=== PATIENT | female | born 1975 | race Caucasian/White ===

== ENCOUNTER 2021-03-13 15:05 | Observation (INO) | payer OTHER, SELFPAY ==
--- NOTE | ~2021-03-13 | CT_ITS ---
EXAMINATION: CT abdomen pelvis wo con DATE: 03/13/2021 17:00 INDICATION: Right flank pain TECHNIQUE: Computed tomography (CT) of the abdomen and pelvis was performed without intravenous contr ast. Automated exposure control and iterative reconstruction technique were employed. Exam dose: 606 .96 mGy-cm total exam DLP. COMPARISON: Numerous right upper quadrant abdominal ultrasound 09/01/2018 radionuclide hepatobiliary scan 08/05/2018 CT abdomen pelvis FINDINGS: Minimal discoid atelectasis or scarring at the lung bases. No infiltrate or consolidation a t the included lower lung zones. Normal heart size. No pericardial or pleural effusion. Status post cholecystectomy. The liver, spleen, pancreas, and adrenal glands are unremarkable. Approximately 3 mm upper pole nonobstructing left renal calculus. Approximately 4 mm distal left ureteral calculus with proximal mild left hydroureteronephrosis. Normal caliber of the abdominal aorta. No intraperitoneal or retroperitoneal or pelvic mass lesion or adenopathy or ascites. No CT evidence of appendicitis. No bowel obstruction, bowel wall thickening, pneumatosis or intraperi toneal free air. The uterus and adnexal areas are unremarkable. The urinary bladder is nearly evacuated. Very small fat-containing umbilical hernia. Included skeletal structures are unremarkable other than hemangioma of T11 vertebral body. IMPRESSION: 4 mm distal left ureteral calculus with proximal mild left hydroureteronephrosis 3 mm upper pole nonobstructing left renal calculus Status post cholecystectomy Reviewed, dictated and finalized at [facility]. Reviewed, dictated and finalized at location [facility]. IMPRESSION: 4 mm distal left ureteral calculus with proximal mild left hydrour eteronephrosis 3 mm upper pole nonobstructing left renal calculus Status post cholecystectomy
--- NOTE | ~2021-03-13 | XR_ITS ---
EXAMINATION: XR abdomen/kub 1V EXAM DATE: 03/13/2021 17:53 INDICATION: Kidney stones, pain to left side, nausea and vomiting. TECHNIQUE: Frontal projection of the upper abdomen, frontal projection lower abdomen/pelvis for inter pretation. Correlation is made to CT abdomen pelvis same date. FINDINGS: Identification of 2 contiguous 3 mm left UVJ identified, indicated. Please correlate this with the CT same date. No other suspicious calcific densities. Cholecystectomy clips. Nonobstructive bowel gas pattern. IMPRESSION: Left UVJ stones identified, indicated. Reviewed, dictated and finalized at location [facility].
--- NOTE | ~2021-03-13 | XR_ITS ---
XR abdomen/kub 1V DATE: 03/14/2021 09:36 INDICATION: Left ureterovesical junction stone TECHNIQUE: AP projection portable supine AP technique, 2 views COMPARISON: 03/13/[address] abdomen pelvis FINDINGS: The previously reported to approximately 3 mm stones of the distal left ureter are no longe r present. Status post cholecystectomy. The bowel gas pattern is unremarkable, without evidence of obstruction. IMPRESSION: Resolution of 2 distal left ureteral approximately 3 mm calcified stones since 03/14/2021 Reviewed, dictated and finalized at [facility]. Reviewed, dictated and finalized at location [facility]. IMPRESSION: Resolution of 2 distal left ureteral approximately 3 mm calcified s tones since 03/14/2021
[2021-03-13 15:06] VITALS: BP 148/82; PULSE 73; RESP 18; TEMP 36.6; O2SAT 100
[2021-03-13 15:42] LABS: Basophils Absolute Auto 0.1 K/mm3 (0.0-0.1); Basophils Percent Auto 0.6 % (0.2-1.2); Eosinophils Absolute Auto 0.1 K/mm3 (0-0.3); Eosinophils Percent Auto 0.7 % (0-4.4); Hemoglobin 13.4 g/dL (12.0-15.0); Immature Granulocyte Absolute 0.05 K/mm3 (0.00-0.031); Immature Granulocyte Percent A 0.3 % (0-0.5); Lymphocytes Absolute Auto 4.09 K/mm3 (0.9-3.2); Lymphocytes Percent Auto 28.4 % (18.3-44.2); Mean Corpuscular HGB Conc 31.9 g/dl (32-36); Mean Corpuscular Volume 84.5 fl (80-100); Mean Platelet Volume 11.7 fl (7.4-10.4); Monocytes Absolute Auto 0.7 K/mm3 (0.1-0.6); Monocytes Percent Auto 4.6 % (2.6-8.5); Neutrophils Absolute Auto 9.4 K/mm3 (1.3-6.7); Neutrophils Percent Auto 65.4 % (45.5-73.1); Platelet Count Result 380 k/mm3 (150-375); Red Blood Count 4.97 M/mm3 (4.2-5.4); Red Cell Distribution Width 12.8 % (11.5-14.5); White Blood Count 14.4 K/mm3 (4.5-10.0)
[2021-03-13 15:44] LABS: Add Urine Microscopic? YES; Appearance Urine Cloudy (Clear); Bacteria Urine Trace /hpf; Bilirubin Urine Negative (Negative); Blood Urine 3+ (Negative); Color Urine Yellow (Yellow); Glucose Urine UA Negative (Negative); Ketones Urine 1+ mg/dL (Negative); Leukocyte Esterase Ur 1+ LEU/UL (Negative); Mucus Urine Moderate /lpf; Nitrate Urine Negative (Negative); Protein Urine 1+ mg/dL (Negative); RBC Urine >75 /hpf (0-2); Specific Grav Ur 1.021 (1.001-1.035); Squamous Epithelial Cell Urine Many /hpf (Few); Urobilinogen Urine Negative mg/dL (<2.0); WBC Urine 21-30 /hpf
[2021-03-13 16:32] LABS: Alanine Aminotransferase 19 U/L (4-35); Albumin Level 5.1 g/dL (3.5-5.1); Alkaline Phosphatase 104 U/L (38-126); Anion Gap 17 mmol/L (8-16); Aspartate Amino Transferase 33 U/L (14-36); Bilirubin,Total 0.5 mg/dL (0.2-1.3); Blood Urea Nitrogen 10 mg/dL (7-17); Calcium 10.4 mg/dL (8.4-10.2); Carbon Dioxide 20 mmol/L (22-30); Chloride 103 mmol/L (98-107); Estimated CRCL calculation 139 ml/min; Estimated Glomerular Filt Rate > 60; Glucose 126 mg/dL (65-110); Lipase 53 U/L (23-300); Potassium 3.1 mmol/L (3.4-5.0); Sodium 140 mmol/L (137-145)
[2021-03-13] MEDS: HYDROmorphone HCL INJ (*CRX) 1 MG/ML SYR IV PUSH (16:35)
[2021-03-13] MEDS: ONDANSETRON INJ 4 MG/2 ML VIAL IV PUSH ×2 (16:35→18:33)
[2021-03-13] MEDS: SODIUM CHLORIDE 0.9% IV 1,000 ML 999 ML IV CONT (16:36)
--- NOTE | 2021-03-13 16:54 | PC.NURSE ---
Pt to CT scan via stretcher at this time.
[2021-03-13 17:43] VITALS: BP 127/68; PULSE 87; RESP 15; O2SAT 97
--- NOTE | 2021-03-13 18:14 | ED.GENADULT ---
HPI - General Adult General Chief complaint: Abdominal Pain Stated complaint: abd pain Time Seen by Provider: 03/13/21 16:07 Source: patient and RN notes reviewed Mode of arrival: ambulatory Limitations: no limitations History of Present Illness HPI narrative: Patient is a 45-year-old female who presents to emergency department for evaluation of acute onset of left flank pain today denies similar occurrence in the past presents uncomfortable has not take anything for her symptoms notes nausea and vomiting pain is localized to the left flank sharp and stabbing in nature Related Data Allergies Allergy/AdvReac Type Severity Reaction Status Date / Time methimazole Allergy Unknown Vomiting Verified 03/13/21 15:10 hydrocodone AdvReac Unknown VOMITING Verified 05/07/19 16:49 CODIENE AdvReac Unknown NAUSEA AND Uncoded 10/01/18 08:44 VOMITING Review of Systems Review of Systems: All systems reviewed & are unremarkable except as noted in HPI and below PMFSH Family History Family History (Updated 09/18/18 @ 08:58 by DOCTOR UNKNOWN) Grandparent Diabetes mellitus Carcinoma of colon Mother Acute myocardial infarction Sibling Family history of gynecological problem Father Patient's father is in good health Social History Social History Smoking status: Never smoker Alcohol intake: current Exam Narrative: Exam Narrative: GENERAL: Ill-appearing, well-nourished, uncomfortable and in no acute distress. HEAD: Normocephalic, atraumatic. EYES: PERRLA and EOMI. ENT: Nares clear, no rhinorrhea or epistaxis. Mucous membranes moist. NECK: Supple. No adenopathy or masses. CHEST: Clear to auscultation. No respiratory distress. No wheezes rales or rhonchi HEART: Regular rate and rhythm. No murmur heard. Normal peripheral pulses. ABDOMEN: Soft, nontender, nondistended EXTREMITIES: Normal range of motion. No edema. SKIN: Warm, dry, no rash. NEURO: No focal deficits. Alert and oriented x3. Cranial nerves II through XII grossly intact PSYCH: Normal mood and affect. Course Course Emergency Course: Patient found to have urolithiasis will be placed in hospital to the urology team with planned reevaluation in the morning fluids pain medicine and antibiotics initiated in the emergency department patient agreeing with this plan Consultations Consultation #1: Discussed case with Dr. Torres who has agreed to accept the patient with reevaluation in the morning n.p.o. status at midnight Date: 03/13/21 Time: 18:16 Vital Signs Vital signs: Vital Signs Temperature 97.8 F 03/13/21 15:06 Pulse Rate 73 03/13/21 15:06 Respiratory Rate 18 03/13/21 15:06 Blood Pressure 148/82 H 03/13/21 15:06 Pulse Oximetry 100 03/13/21 15:06 Temperature 97.8 F 03/13/21 15:06 Pulse Rate 87 03/13/21 17:43 Respiratory Rate 15 03/13/21 17:43 Blood Pressure 127/68 03/13/21 17:43 Pulse Oximetry 97 03/13/21 17:43 Medical Decision Making MDM Narrative Medical decision making narrative: Patient with urolithiasis will be placed in hospital for pain management reevaluation by urology patient is aware of this and agreeing with this and has had improved condition since arrival hemodynamically stable ABCs and vital signs intact and stable Vital Signs Vital Signs: Vital Signs Temperature 97.8 F 03/13/21 15:06 Pulse Rate 73 03/13/21 15:06 Respiratory Rate 18 03/13/21 15:06 Blood Pressure 148/82 H 03/13/21 15:06 Pulse Oximetry 100 03/13/21 15:06 Temperature 97.8 F 03/13/21 15:06 Pulse Rate 87 03/13/21 17:43 Respiratory Rate 15 03/13/21 17:43 Blood Pressure 127/68 03/13/21 17:43 Pulse Oximetry 97 03/13/21 17:43 Lab Data Result diagrams: 03/13/21 15:25 03/13/21 15:25 Labs: Lab Results 03/13/21 03/13/21 03/13/21 Range/Units 15:25 15:25 15:25 WBC 14.4 H (4.5-10.0) K/mm3 RBC 4.97 (4.2-
[2021-03-13] MEDS: MORPHINE SULFATE (*CRX) 4 MG/ML INJ IV PUSH ×3 (18:32→21:39)
[2021-03-13 18:35] VITALS: BP 117/64; PULSE 74; RESP 22; O2SAT 100
--- NOTE | 2021-03-13 19:17 | PC.NURSE ---
Bedside report given to Karma KAYE at this time.
[2021-03-13 21:00] VITALS: BP 145/72; PULSE 70; RESP 20; TEMP 36.4; O2SAT 99; BMI 40.1
[2021-03-13] MEDS: LACTATED RINGERS 1,000 ML 125 ML IV CONT (21:30)
[2021-03-13] MEDS: FAMOTIDINE 20 MG/2 ML VIAL IV PUSH (21:33)
--- NOTE | 2021-03-13 22:05 | ADMGEN ---
This patient, Luciana Thompson, was admitted to [facility] Surg Room 314-02 at 2100. Patient/family oriented to hospital policies and general routines including ID bracelet, bed and alarms, visiting hours, pain management, procedures, bathroom and other care routines, personal items, smoking policy, room service/diet, and visiting hours. Information on how to activate the Rapid Response Team has been discussed. Patient/Family are encouraged to report perceived risks to care and to ask questions if they do not understand what they are told or what they should do.
[2021-03-14] MEDS: MORPHINE SULFATE (*CRX) 4 MG/ML INJ IV PUSH ×2 (02:30→06:02)
[2021-03-14 06:00] VITALS: BP 108/64; PULSE 56; RESP 14; TEMP 36.2; O2SAT 100
[2021-03-14] MEDS: LACTATED RINGERS 1,000 ML 125 ML IV CONT ×2 (06:00→06:06)
[2021-03-14 06:32] VITALS: PULSE 70; RESP 20; O2SAT 99
[2021-03-14 06:33] LABS: Basophils Percent Auto 0.3 % (0.2-1.2); Eosinophils Percent Auto 0.1 % (0-4.4); Hematocrit 35.7 % (37.0-47.0); Hemoglobin 11.4 g/dL (12.0-15.0); Immature Granulocyte Absolute 0.06 K/mm3 (0.00-0.031); Immature Granulocyte Percent A 0.5 % (0-0.5); Lymphocytes Absolute Auto 1.82 K/mm3 (0.9-3.2); Lymphocytes Percent Auto 15.3 % (18.3-44.2); Mean Corpuscular HGB Conc 31.9 g/dl (32-36); Mean Corpuscular Hemoglobin 27.2 pg (26-34); Mean Corpuscular Volume 85.2 fl (80-100); Monocytes Absolute Auto 0.7 K/mm3 (0.1-0.6); Monocytes Percent Auto 5.7 % (2.6-8.5); Neutrophils Absolute Auto 9.3 K/mm3 (1.3-6.7); Neutrophils Percent Auto 78.1 % (45.5-73.1); Platelet Count Result 301 k/mm3 (150-375); Red Blood Count 4.19 M/mm3 (4.2-5.4); White Blood Count 11.9 K/mm3 (4.5-10.0)
[2021-03-14 06:50] LABS: Anion Gap 9 mmol/L (8-16); Blood Urea Nitrogen 9 mg/dL (7-17); Carbon Dioxide 27 mmol/L (22-30); Chloride 102 mmol/L (98-107); Estimated CRCL calculation 144 ml/min; Estimated Glomerular Filt Rate > 60; Glucose 106 mg/dL (65-110); Potassium 3.5 mmol/L (3.4-5.0); Sodium 138 mmol/L (137-145)
--- NOTE | 2021-03-14 09:26 | WPDURCON ---
Assessment and Plan Assessment and plan (1) Urolithiasis: Code(s): N20.9 - Urinary calculus, unspecified Status: Acute Assessment and Plan: STAT KUB shows resolution of previously seen left UVJ stone. Patient's ok to be discharged home. Will send stone for analysis. The 3mm non obstructive left renal stone will need to be monitored yearly with HEATHER since it isn't visible on KUB. Urology Consult Note HPI Date Seen: 03/14/21 Requesting Physician: Daniel Torres MD Primary Care Provider: Elvin, Vee MARR Consult Narrative Narrative: Luciana Thompson is a 45 year old female who presented to the ER yesterday after an acute onset of sharp, stabbing left flank pain that began around 1330 yesterday at work. She denies dysuria, hematuria or vomiting but does have some nausea. Her WBC is 11.9, creatinine of 0.50 and UA is not suspicous of a UTI, urine culture is pending. Her CT scan shows a 4mm distal left UVJ stone with proximal mild left hydronpehrosis and a 3mm non obstructive left renal stone. KUB shows left UVJ stone. The patient states that around 2am she urinated and passed her stone. Her pain is improved and now feels like cramping only. She denies a previous history of kidney stones. Review of Systems Cardiovascular: Cardiovascular: Denies chest pain Respiratory: Respiratory: Reports no additional respiratory complaints Gastrointestinal: Gastrointestinal: Reports abdominal pain, Denies nausea and Denies vomiting Genitourinary: Genitourinary: Denies hematuria, Denies dysuria, Denies flank pain and Denies urinary urgency [facility] Family History Family History Grandparent Diabetes mellitus Carcinoma of colon Mother Acute myocardial infarction Sibling Family history of gynecological problem Father Patient's father is in good health Social History Social History Smoking status: Never smoker Alcohol intake: never Substance use: never Spiritual care concerns: No Meds Home Medications and Allergies Home Medications Medication Instructions Recorded Confirmed Type acetaminophen 1,000 mg PO Q6H PRN 03/13/21 03/13/21 History ibuprofen 800 mg PO Q6H PRN 03/13/21 03/13/21 History nystatin 1 applic TOPICAL DAILY 03/13/21 03/13/21 History sertraline 25 mg PO HS 03/13/21 03/13/21 History Allergies Allergy/AdvReac Type Severity Reaction Status Date / Time methimazole Allergy Unknown Vomiting Verified 03/13/21 21:47 hydrocodone AdvReac Unknown VOMITING Verified 03/13/21 21:47 CODIENE AdvReac Unknown NAUSEA AND Uncoded 10/01/18 08:44 VOMITING Vital Signs Vital Signs - 24 hr 03/13/21 15:06 03/13/21 17:43 03/13/21 18:35 Temperature 97.8 F Pulse Rate 73 87 74 Respiratory Rate 18 15 22 H Blood Pressure 148/82 H 127/68 117/64 Pulse Oximetry 100 97 100 03/13/21 21:00 03/14/21 06:00 03/14/21 06:32 Temperature 97.5 F L 97.1 F L Pulse Rate 70 56 L 70 Respiratory Rate 20 14 20 Blood Pressure 145/72 H 108/64 Pulse Oximetry 99 100 99 Exam Resp: Effort & Inspection: normal respiratory effort Cardio: Rate: regular rate GI: GI Palp: Yes Soft to palpation and Yes Tenderness to palpation present (GI) (LLQ) : General: Yes no CVA tenderness Extrem: General: no edema Results Labs CBC & Chem 7: 03/14/21 05:52 03/14/21 05:52 Labs: Short CBC 03/13/21 03/14/21 Range/Units 15:25 05:52 WBC 14.4 H 11.9 H (4.5-10.0) K/mm3 Hgb 13.4 11.4 L (12.0-15.0) g/dL Hct 42.0 35.7 L (37.0-47.0) % Plt Count 380 H 301 (150-375) k/mm3 BMP 03/13/21 03/14/21 15:25 05:52 Sodium 140 138 Potassium 3.1 L 3.5 Chloride 103 102 Carbon Dioxide 20 L 27 BUN 10 9 Creatinine 0.50 L 0.50 L Glucose 126 H 106 Calcium 10.4 H 9.0 Liver Function 03/13/21 Range/Units 15:25 Total B
[2021-03-14 09:44] VITALS: RESP 20; O2SAT 95
[2021-03-14] MEDS: FAMOTIDINE 20 MG/2 ML VIAL IV PUSH (09:44)
[2021-03-14 11:19] VITALS: O2SAT 95
[2021-03-14 14:00] VITALS: BP 102/56; PULSE 63; RESP 16; TEMP 36.7; O2SAT 99
--- NOTE | 2021-04-21 16:12 | P.DS_ITS ---
DS: Admitting Diagnosis Admitting Diagnosis Ureteral Stone DS: Discharge Diagnosis Discharge Diagnosis (1) Urolithiasis: Code(s): N20.9 - Urinary calculus, unspecified Status: Acute DS: Summary Hospital Course Hospital Course: See note below. Time Spent with Patient Time attestation: Luciana Thompson is a 45 year old female who presented to the ER on 03/13/2021 after an acute onset of sharp, stabbing left flank pain that began the day before at work. She denies dysuria, hematuria or vomiting but does have some nausea. Her WBC was 11.9, creatinine of 0.50 and urine culture was growing group B strep. Her CT scan showed a 4mm distal left UVJ stone with proximal mild left hydronpehrosis and a 3mm non obstructive left renal stone. KUB shows left UVJ stone. The patient states that around 2am 03/14/2021 she urinated and passed her stone. Her pain is improved and now feels like cramping only. She denies a previous history of kidney stones. A KUB confirmed passage of her stone and she was discharged home without need for intervention. She was to resume a regular diet, activity as tolerated and to resume all previous home mediations. Exam Resp: Effort & Inspection: normal respiratory effort Cardio: Rate: regular rate GI: GI Palp: Yes Soft to palpation and No Tenderness to palpation present (GI) : General: Yes no CVA tenderness Extrem: General: no edema DS: Data Data Completed and Pending Completed studies during hospitalization: Pending at discharge 03/14/21 09:42 Surgical [PTH] Routine Discharge Plan Discharge Attending physician on discharge: Daniel Torres Consulting providers: Ken Barnes ; Hiral Easley Discharging Clinician: Hiral Easley Anticipated Discharge Date/Time: 03/14/21 13:30 Patient Disposition: Home, Self-Care Activity: may shower Diet: as tolerated Discharge Instructions: You should follow up with our office next year to monitor your left kidney stone. We will plan to do a renal ultrasound on it yearly, until it either passes on it's own spontaneously or until it is large enough and visible on X- Ray to do a lithotripsy procedure on it. No further follow up needed at this time since you have passed your stone. You will experience some discomfort after passing your stone for up to a week, possibly see blood in your urine or urinate more often than usual. This is a common experience when passing a stone. Patient Instructions: Antibiotic Form, Pain Management (DC) Stand Alone Forms: General Discharge Information Follow-up/Referrals: Daniel Torres MD [Physician] - Discharge Medications: New ketorolac 10 mg tablet 10 mg PO Q6H 5 Days Qty: 20 RF: 0 nitrofurantoin monohyd/m-cryst [Macrobid] 100 mg capsule 100 mg PO Q12H 7 Days Qty: 14 RF: 0 Continued ibuprofen 800 mg Tablet 800 mg PO Q6H PRN (Reason: Fever) RF: 0 acetaminophen 500 mg Tablet 1,000 mg PO Q6H PRN (Reason: pain) RF: 0 sertraline 25 mg tablet 25 mg PO HS RF: 0 nystatin 100,000 unit/gram powder 1 applic TOPICAL DAILY RF: 0 Date of admission: 03/13/21 18:18 Primary Care Provider: CarlosVee Admitting Provider: Daniel Torres Attending physician on admission: Daniel Torres Condition: Improved
== END 2021-03-14 14:45 | disposition home or self-care (01) ==
LOC: ANHED 18:17 → ANH3MEDSUR 20:47
PROVIDERS: Emergency Medicine Emergency Medical Services; Admitting Provider Urology; Emergency Provider Emergency Medicine; PCP Pediatrics; Visit Provider Urology
DX: N13.2 Hydronephrosis with renal and ureteral calculous obstruction (principal)
CPT/HCPCS: 36415; 51701; 74018; 74176; 80048; 80053; 81001; 81025; 82365; 83690; 85025; 87077; 87086; 87088; 88300; 96361; 96365; 96367; 96374; 96375; 96376; 99285; G0378; J0131; J0696; J1170; J2270; J2405; J7030; J7120

== ENCOUNTER 2021-09-01 13:20 | Outpatient (CLI) | payer OTHER, SELFPAY ==
--- NOTE | ~2021-09-01 | MMUS_ITS ---
EXAMINATION: MM diagnostic felicity BI w cecy, US breast RT limited HISTORY: Abnormal density in the upper outer quadrant of the right breast TECHNIQUE: Craniocaudal, mediolateral, and mediolateral oblique 3-D tomosynthesis images of the breas ts were performed and synthetic 2-D images were generated. CAD analysis was submitted and interpreted . High resolution limited right breast ultrasound was performed. COMPARISON: None, baseline BREAST PARENCHYMAL COMPOSITION: The breasts are almost entirely fatty. FINDINGS: MAMMOGRAPHIC FINDINGS: There is no evidence of suspicious mass, calcification, or architectural distortion in either breast to suggest malignancy. No mammographic correlate is identified for the reported palpable abnormality of the right breast. ULTRASOUND: There is no evidence of focal abnormal solid or cystic mass in the vicinity of the reported palpable abnormality of the right breast. IMPRESSION: 1. No specific mammographic or sonographic correlate is identified for the reported palpable abnormal ity of concern. Further evaluation at this time should be based on clinical assessment. Continued fol low-up physical examination is recommended. 2. Recommend routine screening mammography in one year. BI-RADS Category 1: Negative Reviewed, dictated and finalized at location [facility]. ECT CONSTRUCTION MANAGER IMPRESSION: 1. No specific mammographic or sonographic correlate is identified for the repo rted palpable abnormality of concern. Further evaluation at this time should be based on clinical assessment. Continued follow-up physical examination is lance mmended. 2. Recommend routine screening mammography in one year. BI-RADS Category 1: Negative
== END 2021-09-01 13:21 | disposition home or self-care (01) ==
LOC: ANHIMG 13:22
PROVIDERS: PCP Physician Assistant; Visit Provider Obstetrics & Gynecology
DX: N63.11 Unspecified lump in the right breast, upper outer quadrant (principal)
CPT/HCPCS: 76642; 77062; 77066; G0279

== ENCOUNTER 2022-10-30 17:04 | Outpatient (CLI) | payer OTHER, SELFPAY ==
--- NOTE | ~2022-10-30 | MM_ITS ---
EXAMINATION: MM screening felicity BI w cecy HISTORY: Screening mammogram TECHNIQUE: Craniocaudal and mediolateral oblique 3-D tomosynthesis images were obtained and synthetic 2-D images were generated. CAD analysis was submitted and interpreted. COMPARISON: 09/01/2021 BREAST PARENCHYMAL COMPOSITION: The breasts are almost entirely fatty. FINDINGS: No suspicious mass, calcification, or architectural distortion are identified in either lary ast to suggest malignancy. There has been no suspicious interval change. IMPRESSION: 1. No mammographic evidence of malignancy. 2. Recommend routine screening mammography in one year. BI-RADS Category 1: Negative Reviewed, dictated and finalized at location A. ENT COUNSELOR
== END 2022-10-30 17:05 | disposition home or self-care (01) ==
PROVIDERS: PCP Physician Assistant; Visit Provider Obstetrics & Gynecology
DX: Z12.31 Encounter for screening mammogram for malignant neoplasm of breast (principal)
CPT/HCPCS: 77063; 77067

== ENCOUNTER 2024-07-15 13:55 | Outpatient (CLI) | payer OTHER, BC, SELFPAY ==
--- NOTE | ~2024-07-15 | MM_ITS ---
EXAMINATION: MM screening felicity BI w cecy HISTORY: Screening mammogram TECHNIQUE: Craniocaudal and mediolateral oblique 3-D tomosynthesis images were obtained and synthetic 2-D images were generated. CAD analysis was submitted and interpreted. COMPARISON: 10/30/2022, 09/01/2021 BREAST PARENCHYMAL COMPOSITION:Not Dense. The breasts are almost entirely fatty FINDINGS: No suspicious mass, calcification, or architectural distortion are identified in either lary ast to suggest malignancy. There has been no suspicious interval change. IMPRESSION: No mammographic evidence of malignancy. Recommend routine screening mammography in one year. BI-RADS Category 1: Negative Reviewed, dictated and finalized at location . TRIC PILE DRIVER OPERATOR
== END 2024-07-15 13:56 | disposition home or self-care (01) ==
LOC: ANHIMG 13:59
PROVIDERS: PCP Physician Assistant; Visit Provider Obstetrics & Gynecology
DX: Z12.31 Encounter for screening mammogram for malignant neoplasm of breast (principal)
CPT/HCPCS: 77063; 77067

== ENCOUNTER 2024-08-15 07:55 | Outpatient (CLI) | payer OTHER, BC, SELFPAY ==
--- NOTE | ~2024-08-15 | XR_ITS ---
EXAMINATION: XR cervical spine 4-5V DATE: 08/15/2024 08:25 INDICATION: Cervical radiculopathy. Left arm tingling and burning. TECHNIQUE: 4 views of cervical spine were obtained. COMPARISON: None. FINDINGS: Alignment is normal. Vertebral body heights are normal. There is mildly decreased disc heig ht at C5-C6 and C6-C7. There is severe left uncovertebral joint osteoarthritis at C5-C6 and C6-C7. Th ere is multilevel mild facet joint osteoarthritis. There is mild central canal stenosis at C5-C6 and C6-C7. IMPRESSION: 1. Moderate cervical spondylosis. Reviewed, dictated and finalized at location A. MIZATION CONSULTANT
== END 2024-08-15 07:56 | disposition home or self-care (01) ==
LOC: MICIMG 07:59
PROVIDERS: PCP Physician Assistant; Visit Provider Physician Assistant
DX: M43.02 Spondylolysis, cervical region (principal)
CPT/HCPCS: 72050

== ENCOUNTER 2024-09-01 08:00 | Outpatient (CLI) | payer OTHER, BC, SELFPAY ==
--- NOTE | ~2024-09-01 | MR_ITS ---
MRI of the cervical spine Clinical History: Spinal stenosis Technique: Axial T2-weighted and gradient images, and sagittal T1-weighted, T2-weighted, and STIR austen ges were acquired. Findings: There is no fracture or subluxation of the cervical spine. There is straightening of the no rmal cervical lordosis. No bone marrow signal abnormalities seen. At C2-C3, there is no disc bulge or herniation. There is minimal facet joint hypertrophy. No spinal c anal stenosis, cord compression, or neural foraminal narrowing. At C3-C4, there is minimal disc osteophyte complex. No spinal canal stenosis, cord compression, or de finite neural foraminal narrowing. At C4-C5, there is minimal disc osteophyte complex. No spinal canal stenosis, cord compression, or de finite neural foraminal narrowing. At C5-C6, there is degenerative disc narrowing with disc osteophyte complex. There is mild canal sten osis and minimal flattening the ventral cord. There is left neural foraminal narrowing. Right neural foramen preserved. At C6-C7, there is minimal disc osteophyte complex. No canal stenosis or cord compression. There is l eft neural foraminal narrowing. Right neural foramen preserved. No abnormal signal seen in the spinal cord. Paravertebral soft tissues are unremarkable. Impression: Moderate degenerative spondylosis at C5-C6, as detailed above. Mild degenerative spondylosis at C6-C7 , as above. Reviewed, dictated and finalized at [facility]. REMENT CONSULTANT Impression: Moderate degenerative spondylosis at C5-C6, as detailed above. Mild degenerativ e spondylosis at C6-C7, as above.
== END 2024-09-01 08:01 | disposition home or self-care (01) ==
LOC: GOSHIMG 08:01
PROVIDERS: PCP Physician Assistant; Visit Provider Physician Assistant
DX: M47.812 Spondylosis without myelopathy or radiculopathy, cervical region (principal)
CPT/HCPCS: 72141